=== PATIENT | female | born 1990 | race African-American/Black ===

== ENCOUNTER 2017-01-15 09:32 | Emergency (ER) | payer SELFPAY ==
[~2017-01-15] VITALS: Ht 170.2 cm; Wt 90.7 kg
[~2017-01-15 09:32] MED LIST: NITR100C62 PO; SULF1TAB24 PO; TRAM-48 PO
[2017-01-15 09:41] VITALS: BP 112/92
[2017-01-15] MEDS ORDERED: HYDR-971 PO (09:55)
[2017-01-15] MEDS ORDERED: PENI500T PO (09:55)
--- NOTE | 2017-01-15 09:56 | PHYS DOC ---
Past History Past Medical History: No Pertinent History Past Surgical History: No Surgical History Alcohol Use: None Drug Use: None Adult General Chief Complaint Chief Complaint: DENTAL PROBLEM HPI HPI Patient is a 26 year old female who presents with complaint of dental pain. Patient states her symptoms started last night. Patient states that the worst of her pain is along her left lower jaw. Patient denies any associated fever. Patient does admit to mild swelling along her left jaw. The patient states that her pain currently is 10 out of 10. Patient has not taken any medications to help with symptoms. She has not seen a dentist since 2011. Patient admits to dental decay and multiple missing or broken teeth. Review of Systems Review of Systems Constitutional: Denies fever or chills [] HENT: Dental pain [] Respiratory: Denies cough or shortness of breath [] Cardiovascular: No additional information not addressed in HPI [] Musculoskeletal: Denies back pain or joint pain [] Integument: Denies rash or skin lesions [] Neurologic: Denies headache, focal weakness or sensory changes [] Allergies Allergies Allergies Coded Allergies Type Severity Reaction Last Updated Verified No Known Drug Allergies 01/15/17 No Physical Exam Physical Exam Constitutional: Well developed, well nourished, no acute distress, non-toxic appearance. [] HENT: Normocephalic, atraumatic, bilateral external ears normal, oropharynx moist, multiple dental caries with particular attention to teeth numbers 17 through 19 with exposed root, direct tenderness to palpation over aforementioned teeth. [] Neck: Normal range of motion, no tenderness, supple, no stridor. [] Lungs & Thorax: Respirations nonlabored [] Abdomen: Bowel sounds normal, soft, no tenderness, no masses, no pulsatile masses. [] Extremities: No tenderness, no cyanosis, no clubbing, ROM intact, no edema. [] Neurologic: Alert and oriented X 3, normal motor function, normal sensory function, no focal deficits noted. [] Current Patient Data Vital Signs Vital Signs Date Time Temp Pulse Resp B/P (MAP) Pulse Ox O2 Delivery O2 Flow Rate FiO2 01/15/17 09:41 99.5 89 18 99 Room Air EKG EKG Not performed [] Radiology/Procedures Radiology/Procedures Not performed [] Course & Med Decision Making Course & Med Decision Making Pertinent Labs and Imaging studies reviewed. (See chart for details) Patient was given [place] and penicillin VK in the emergency department. Patient will be discharged on these medications for outpatient treatment. Patient recommended follow-up with a dentist for definitive care. Advised return to the emergency department for any worsening symptoms. Patient voiced understanding and in agreement with treatment plan. Dragon Disclaimer Dragon Disclaimer This chart was dictated in whole or in part using Voice Recognition software in a busy, high-work load, and often noisy Emergency Department environment. It may contain unintended and wholly unrecognized errors or omissions. Departure Departure: Impression: Primary Impression: Pain due to dental caries Disposition: HOME, SELF-CARE Condition: IMPROVED Referrals: PCPANABEL (PCP) Patient Instructions: Dental Pain Additional Instructions: Follow-up with a dentist in the next 3-5 days. Return to the emergency department for any worsening symptoms. Scripts Penicillin V Potassium (PENICILLIN V POTASSIUM) 500 Mg Tablet 1 TAB PO QID, #40 TAB Prov: KAITLYN BREWER MD 01/15/17 Hydrocodone Bit/Acetaminophen (NORCO 5-325 TABLET) 1 Each Tablet 1-2 TAB PO Q4-6HRS Y for PAIN, #20 TAB Prov: KAITLYN BREWER MD 01/15/17 KAITLYN BREWER MD January 15, 2017 09:56
[2017-01-15] MEDS ORDERED: HYDROcodone/APAP 7.5/325MG 1 TAB TABLET PO ONE (10:15)
[2017-01-15] MEDS ORDERED: PENICILLIN V K 250 MG TABLET. PO ONE (10:15)
== END 2017-01-15 10:13 | disposition home or self-care (01) ==
LOC: ER 09:32
DX: K02.9 Dental caries, unspecified (principal)
CPT/HCPCS: 99283

== ENCOUNTER 2017-02-09 09:17 | Emergency (ER) | payer SELFPAY ==
[~2017-02-09 09:17] MED LIST changes: +HYDR-971 PO; +PENI500T PO
[2017-02-09 09:25] VITALS: BP 155/87
--- NOTE | 2017-02-09 09:28 | ED.ADGEN ---
Past History Past Medical History: No Pertinent History Past Surgical History: No Surgical History Alcohol Use: None Drug Use: None Adult General HPI HPI Patient is a 26-year-old woman, with no significant past no history, who presents to the emergency department with complaint of left knee pain that began last night. Patient states that she was "marching", performing down steps , when she felt a "pop", in the back of her leg behind her left knee, and experienced immediate pain. She states the pain is located from the lower part of the posterior thigh extending into the upper part of the calf. She states that she will ambulating with some difficulty after this pain began, went home and went to sleep opening she will feel better in the morning. Patient did not take any medications or use ice or other interventions. She states that when she woke this morning she was still having pain in this area, states she has pain with any flexion or extension, or when she attempts to weight-bear. Denies any other injuries, denies similar symptoms previously, states she has previously broken her right ankle. No other complaints. Review of Systems Review of Systems Constitutional: Denies fever or chills [] Eyes: Denies change in visual acuity, redness, or eye pain [] HENT: Denies nasal congestion or sore throat [] Respiratory: Denies cough or shortness of breath [] Cardiovascular: No additional information not addressed in HPI [] GI: Denies abdominal pain, nausea, vomiting, bloody stools or diarrhea [] : Denies dysuria or hematuria [] Musculoskeletal: Denies back pain, pain in the posterior aspect of the left knee. Integument: Denies rash or skin lesions [] Neurologic: Denies headache, focal weakness or sensory changes [] Current Medications Current Medications Current Medications Medications (Trade) Dose Ordered Sig/[facility] Start Time Stop Time Status Last Admin Dose Admin Ibuprofen (Motrin) 600 mg 1X ONCE 02/09/17 09:45 02/09/17 09:46 DC 02/09/17 09:45 600 MG Allergies Allergies Allergies Coded Allergies Type Severity Reaction Last Updated Verified No Known Drug Allergies 01/15/17 No Physical Exam Physical Exam Constitutional: Well developed, well nourished, no acute distress, non-toxic appearance. [] HENT: Normocephalic, atraumatic, bilateral external ears normal, oropharynx moist, no oral exudates, nose normal. [] Eyes: PERRLA, EOMI, conjunctiva normal, no discharge. [] Neck: Normal range of motion, no tenderness, supple, no stridor. [] Cardiovascular:Heart rate regular rhythm, no murmur, S1, S2, rubs or gallops. [] Lungs & Thorax: Bilateral breath sounds clear to auscultation , no wheezing, rhonchi, rales. No chest wall crepitus or tenderness. [] Abdomen: Bowel sounds normal, soft, no tenderness, no rebound, rigidity, no guarding, no masses, no pulsatile masses. [] Skin: Warm, dry, no erythema, no rash. [] Back: No tenderness, no CVA tenderness. [] Extremities: Patient with tenderness to palpation in the patellar fossa, no effusion identified, no tenderness to a patient along the knee joint, either medially or laterally, patella is nontender and intact, no external signs of trauma, no tenderness to palpation in the calf or upper thigh aside from the area just behind the knee, negative drawer test, no other locations of pain where abnormalities identified, patient with full range of motion of the ankle, foot, hip, no difficulty with motion of the right lower extremity or upper extremities no cyanosis, no clubbing, intact to passive range of motion, limited with active secondary to pain of the left knee, no edema. [] Neurologic: Alert and oriented X 3, normal motor function, normal sensory function, no focal deficits noted. [] Psychologic: Affect normal, judgement normal, mood normal. [] Current Patient Data Vital Signs Vital Signs Date Time Temp Pulse Resp B/P (MAP) Pulse Ox O2 Delivery O2 Flow Rate FiO2 02/09/17 09:25 97.8 92 24 100 Room Air EKG EKG Not indicated. [] Radiology/Procedures Radiology/Procedures [][address] [address] IMAGING REPORT Signed PATIENT: HANNAH LAM ACCOUNT: [id number] : 1990 LOCATION: ER AGE: 26 SEX: F EXAM STATUS: REG ER ORD. PHYSICIAN: WESLEY VELARDE DO REASON: pain/injury while dancing PROCEDURE: KNEE LEFT 3V Left knee 3 views. 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 There is no fracture or joint effusion or acute osseous abnormality. Impression: 1. No acute abnormality noted in the left knee. 2. No fracture noted. DICTATED AND SIGNED BY: FLOR HINES MD DATE: 02/09/17 0945 CC: WESLEY VELARDE DO; PCP,NO ~ Course & Med Decision Making Course & Med Decision Making Pertinent Labs and Imaging studies reviewed. (See chart for details) Patient well-appearing, did ambulate into the ED without difficulty, although she is favoring the left leg. Examination is consistent with muscle strain. X- ray did not reveal any evidence of acutely concerning findings, patient received I Profen in the emergency department, Armand wrap was applied after discussion with patient, received work note for tonight as she states she that [employer] and is required to walk around the store. Patient given clear and detailed instructions, instructed to use armand wrap as needed for compression, ice , rest, elevation, ibuprofen and acetaminophen as directed on package, also given contact information for Dr. Choe of orthopedics to establish follow-up if symptoms persist for more than one week, to return to the ED if concerning symptoms develop. Patient voiced understanding and agreement with plan as stated , discharged home in stable condition with plan as above. Final Impression Final Impression [] Problems: Dragon Disclaimer Dragon Disclaimer This electronic medical record was generated, in whole or in part, using a voice recognition dictation system. Departure: Impression: Primary Impression: Knee pain, left Disposition: 01 HOME, SELF-CARE Condition: IMPROVED WESLEY VELARDE DO February 09, 2017 09:28
[2017-02-09] MEDS ORDERED: IBUPROFEN 600 MG TABLET. PO ONE (09:45)
--- NOTE | 2017-02-09 09:50 | RAD ---
Left knee 3 views. 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 There is no fracture or joint effusion or acute osseous abnormality. Impression: 1. No acute abnormality noted in the left knee. 2. No fracture noted.
== END 2017-02-09 10:05 | disposition home or self-care (01) ==
LOC: ER 09:17
DX: M25.562 Pain in left knee (principal); X50.9XXA Other and unspecified overexertion or strenuous movements or postures, initial encounter; Y93.41 Activity, dancing; Y99.8 Other external cause status; Y92.89 Other specified places as the place of occurrence of the external cause
CPT/HCPCS: 73562; 99284

== ENCOUNTER 2017-02-12 23:35 | Emergency (ER) | payer SELFPAY ==
[~2017-02-12] VITALS: Ht 170.2 cm; Wt 90.7 kg
[2017-02-12 23:40] VITALS: BP 97/60
--- NOTE | 2017-02-12 23:43 | ED.ADGEN ---
Past History Past Medical History: No Pertinent History Past Surgical History: No Surgical History Alcohol Use: None Drug Use: None Adult General Chief Complaint Chief Complaint Leg pain HPI HPI Patient is a 26 year old for can Citizen Of [place] female who presents with left DP. 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 She was evaluated in the ER with x-rays do not show anything broken. She was sent home with Tylenol and Motrin. She states she's been using this [id number] and her knee pain is came back. She states the first 24 hours after being discharged she felt fine however now that she's been using her knee more she feels pain in the posterior aspect of her left knee. She states is only when she is trying to walk on it or use it that she feels a discomfort. She denies any fevers chills nausea vomiting , shortness of breath. Review of Systems Review of Systems Constitutional: Denies fever or chills [] Eyes: Denies change in visual acuity, redness, or eye pain [] HENT: Denies nasal congestion or sore throat [] Respiratory: Denies cough or shortness of breath [] Cardiovascular: No additional information not addressed in HPI [] GI: Denies abdominal pain, nausea, vomiting, bloody stools or diarrhea [] : Denies dysuria or hematuria [] Musculoskeletal: Denies back pain or joint pain [] Integument: Denies rash or skin lesions [] Neurologic: Denies headache, focal weakness or sensory changes [] Endocrine: Denies polyuria or polydipsia [] Allergies Allergies Allergies Coded Allergies Type Severity Reaction Last Updated Verified No Known Drug Allergies 01/15/17 No Physical Exam Physical Exam Constitutional: Well developed, well nourished, no acute distress, non-toxic appearance. [] HENT: Normocephalic, atraumatic, bilateral external ears normal, oropharynx moist, no oral exudates, nose normal. [] Eyes: PERRLA, EOMI, conjunctiva normal, no discharge. [] Neck: Normal range of motion, no tenderness, supple, no stridor. [] Cardiovascular:Heart rate regular rhythm, no murmur [] Lungs & Thorax: Bilateral breath sounds clear to auscultation [] Abdomen: Bowel sounds normal, soft, no tenderness, no masses, no pulsatile masses. [] Skin: Warm, dry, no erythema, no rash. [] Back: No tenderness, no CVA tenderness. [] Extremities: Mild tenderness in the posterior left knee without any effusions appreciated, full range of motion, anterior posterior drawer lateral collateral ligaments intact. No pain in the calf area or cords appreciated. Dorsal pedis pulse intact. No cyanosis, no clubbing, ROM intact, no edema. [] Neurologic: Alert and oriented X 3, normal motor function, normal sensory function, no focal deficits noted. [] Psychologic: Affect normal, judgement normal, mood normal. [] Current Patient Data Vital Signs Vital Signs Date Time Temp Pulse Resp B/P (MAP) Pulse Ox O2 Delivery O2 Flow Rate FiO2 02/12/17 23:40 98.1 91 20 97/60 (72) 100 Room Air EKG EKG [] Radiology/Procedures Radiology/Procedures [] Course & Med Decision Making Course & Med Decision Making Pertinent Labs and Imaging studies reviewed. (See chart for details) I do not believe she needs any additional imaging. Her pain is reproducible and is made worse when she is up trying to walk. We'll discharge with [place] and she can continue using her ibuprofen. She is to follow-up with orthopedic surgery her pain is still not improved after a week. Return precautions given for worsening pain, fevers, shortness of breath, discoloration of her leg or other concerns. She is in stable condition being discharged at this time. I did offer her crutches and she states she would not want them. Final Impression Final Impression Left knee pain Problems: Dragon Disclaimer Dragon Disclaimer This electronic medical record was generated, in whole or in part, using a voice recognition dictation system. KRISTINA GRACIA MD Feb 12, 2017 23:43
[2017-02-13] MEDS ORDERED: HYDR-971 PO (00:04)
[2017-02-13] MEDS ORDERED: HYDROcodone/APAP 5/325MG 1 TAB TABLET PO ONE (00:15)
== END 2017-02-13 00:20 | disposition home or self-care (01) ==
LOC: ER 23:35
DX: M25.562 Pain in left knee (principal)
CPT/HCPCS: 99283

== ENCOUNTER 2017-11-30 22:06 | Emergency (ER) | payer OTHER ==
[~2017-11-30] VITALS: Ht 170.2 cm; Wt 82.1 kg
[2017-11-30 22:06] VITALS: BP 114/65
--- NOTE | 2017-11-30 22:35 | PHYS DOC ---
Past History Past Medical History: No Pertinent History Past Surgical History: No Surgical History Alcohol Use: None Drug Use: None Adult General Chief Complaint Chief Complaint: TEST HPI HPI Patient is a 27-year-old female who presents here today complaining of nausea vomiting diarrhea and concerns that she might be . Upon arrival into the patient's room, the patient had left after she found out that her test was negative. I discussed the case with the patient's acuity and they report that the patient left approximate 45 seconds prior to me entering the room. Allergies Allergies Allergies Coded Allergies Type Severity Reaction Last Updated Verified No Known Drug Allergies 01/15/17 No Current Patient Data Lab Results Laboratory Tests Test 11/30/17 21:22 POC Urine HCG, Qualitative hcg negative (Negative) EKG EKG [] Radiology/Procedures Radiology/Procedures [] Course & Med Decision Making Course & Med Decision Making Pertinent Labs and Imaging studies reviewed. (See chart for details) [] Dragon Disclaimer Dragon Disclaimer This electronic medical record was generated, in whole or in part, using a voice recognition dictation system. Departure Departure: Impression: Primary Impression: Nausea vomiting and diarrhea Disposition: 07 AGAINST MEDICAL ADVICE Condition: STABLE Referrals: PCP,NO (PCP) SOY WASHINGTON MD Nov 30, 2017 22:35
== END 2017-11-30 22:28 | disposition left against medical advice (07) ==
LOC: ER 22:06
DX: R11.2 Nausea with vomiting, unspecified (principal); R19.7 Diarrhea, unspecified
CPT/HCPCS: 81025; 99282

== ENCOUNTER 2018-04-08 08:35 | Emergency (ER) | payer OTHER ==
[~2018-04-08] VITALS: Ht 170.2 cm; Wt 79.4 kg
--- NOTE | 2018-04-08 09:12 | PHYS DOC ---
Past History Past Medical History: No Pertinent History Past Surgical History: No Surgical History Alcohol Use: None Drug Use: None Adult General Chief Complaint Chief Complaint: NAUSEA/VOMITING/DIARRHEA HPI HPI 27-year-old female patient states she had 1 episode of vomiting last night and 2 episodes of diarrhea today with cramping abdominal pain since this morning. Patient states she did not have sick contact, fever, urinary symptom and denies . Review of Systems Review of Systems Constitutional: Denies fever or chills [] Eyes: Denies change in visual acuity, redness, or eye pain [] HENT: Denies nasal congestion or sore throat [] Respiratory: Denies cough or shortness of breath [] Cardiovascular: No additional information not addressed in HPI [] GI: Reports abdominal pain, nausea, vomiting, diarrhea [] : Denies dysuria or hematuria [] Musculoskeletal: Denies back pain or joint pain [] Integument: Denies rash or skin lesions [] Neurologic: Denies headache, focal weakness or sensory changes [] Endocrine: Denies polyuria or polydipsia [] All other systems were reviewed and found to be within normal limits, except as documented in this note. Current Medications Current Medications Current Medications Medications (Trade) Dose Ordered Sig/[facility] Start Time Stop Time Status Last Admin Dose Admin Loperamide HCl (Imodium) 4 mg 1X ONCE 04/08/18 09:00 04/08/18 09:01 UNV Naproxen (Naprosyn) 500 mg 1X ONCE 04/08/18 09:00 04/08/18 09:01 UNV Ondansetron HCl (Zofran Odt) 4 mg 1X ONCE 04/08/18 09:00 04/08/18 09:01 UNV Allergies Allergies Allergies Coded Allergies Type Severity Reaction Last Updated Verified No Known Drug Allergies 01/15/17 No Physical Exam Physical Exam Constitutional: Well developed, well nourished, mild distress, non-toxic appearance. [] HENT: Normocephalic, atraumatic, oropharynx moist, no oral exudates. [] Eyes: PERRLA, EOMI, conjunctiva normal, no discharge. [] Neck: Normal range of motion, no tenderness, supple, no stridor. [] Cardiovascular:Heart rate regular rhythm, no murmur [] Lungs & Thorax: Bilateral breath sounds clear to auscultation [] Abdomen: Bowel sounds normal, soft, no tenderness, no masses, no pulsatile masses. [] Skin: Warm, dry, no erythema, no rash. [] Back: No tenderness, no CVA tenderness. [] Extremities: No tenderness, no cyanosis, no clubbing, ROM intact, no edema. [] Neurologic: Alert and oriented X 3, normal motor function, normal sensory function, no focal deficits noted. [] Psychologic: Affect anxious, judgement normal, mood normal. [] EKG EKG [] Radiology/Procedures Radiology/Procedures [] Course & Med Decision Making Course & Med Decision Making Pertinent Labs and Imaging studies reviewed. (See chart for details) discharge: I've spoken with the patient and/or caregivers. I've explained the patient's condition, diagnosis and treatment plan based on information available to me at this time. I've answered the patient's and/or caregivers questions and addressed any concerns. The patient and/or caregivers have a good understanding the patient's diagnosis, condition and treatment plan as can be expected at this point. Vital signs have been stabilized. The patient's condition is stable for discharge from the emergency department. The patient will pursue further outpatient evaluation with her primary care provider or other designated consulting physician as outlined in the discharge instructions. Patient and/or caregivers are agreeable to this plan of care and follow-up instructions have been explained in detail. The patient and/or caregivers have received these instructions in written format and expressed understanding of these discharge instructions. The patient and her caregivers are aware that if any significant change in condition or worsening of symptoms should prompt him to immediately return to this of the closest emergency department. If an emergent department is not readily available I would encourage him to call 911. [] Dragon Disclaimer Dragon Disclaimer This electronic medical record was generated, in whole or in part, using a voice recognition dictation system. Departure Departure: Impression: Primary Impression: Acute gastroenteritis Disposition: HOME, SELF-CARE (at 0931) Condition: IMPROVED Referrals: PCP,ANABEL (PCP) Patient Instructions: Viral Gastroenteritis Additional Instructions: Drink plenty of liquids Follow-up with your primary care physician in 3-5 days Return to ER if not getting better Scripts Ondansetron (ZOFRAN ODT) 4 Mg Tab.rapdis 1 TAB SL Q8HRS, #15 TAB Prov: ROSE KEYS MD 04/08/18 ROSE KEYS MD Apr 08, 2018 09:12
[2018-04-08] MEDS ORDERED: NAPROXEN 500 MG TABLET PO ONE (09:15)
[2018-04-08] MEDS ORDERED: ONDANSETRON ODT 4 MG TAB.RAPDIS PO ONE (09:15)
[2018-04-08] MEDS ORDERED: LOPERAMIDE 2 MG CAPSULE PO ONE (09:15)
[2018-04-08] MEDS ORDERED: ONDA4TAB10 SL (09:34)
[2018-04-08 09:44] VITALS: BP 112/73
== END 2018-04-08 09:45 | disposition home or self-care (01) ==
LOC: ER 08:35
DX: K52.89 Other specified noninfective gastroenteritis and colitis (principal)
CPT/HCPCS: 99284; Q0162